=== PATIENT | female | born 2000 ===

== ENCOUNTER 2021-06-18 06:18 | Inpatient (IN) | payer OTHER ==
[~2021-06-18] VITALS: Ht 170.2 cm; Wt 81.5 kg
[2021-06-18] MEDS ORDERED: PENICILLIN G POTASSIUM IV 5 MU in D5W MINI-BAG PLUS 100 ML IV STA (07:14)
[2021-06-18] MEDS ORDERED: OXYTOCIN DRIP 30 UNITS in IV 1 EA IV PRN (07:15)
[2021-06-18] MEDS ORDERED: LIDOCAINE 1% MDV 20ML VIAL INFIL PRN (07:15)
[2021-06-18] MEDS ORDERED: OXYTOCIN 30 UNITS IN 0.9% NaCl 500ML IV BAG (J2590) As Ordered ONE (07:20)
--- NOTE | 2021-06-18 08:07 | HPEPDOC ---
Obstetrical History & Physical General Date of Admission Jun 18, 2021 at 07:06 History of Present Illness Ms. Sosa is a 20yo at 38+6 who presented in active labor. She denied Vb , LOf, decreased fm. 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 Past Medical History Medical History history of TB in 2016 anemia elevated 1h GTT, no 3h GTT or finger sticks GBS positive Initial blood Ab test positive, repeat testing negative inconsistent information on dating Surgical History: Denies/None Family History Significant Family History: No pertinent family hx Social History Psychosocial History: No pertinent psych hx * Smoker: non-smoker Alcohol: Denies Drugs: denies Imunizations Tdap status: current Allergies Coded Allergies: honey (Verified Allergy, Mild, HIVES NUMBNESS, 06/18/21) Physical Examination Physical Examination GENERAL: Alert and oriented times three. BREAST: . ABDOMEN: Gravid and non-tender to touch. FETUS: Is vertex (VTX) by sterile vaginal examination (SVE), fetus is vertex (VTX) by US HEART RATE: Regular rate and rhythm. LUNGS: Clear to auscultation (CTA). EXTREMITIES: No edema. No clonus. Laboratory Data 24H LABS Laboratory Tests 2 06/18/21 07:46: CBC/BMP Pertinent Laboratoy Data Blood Type: O+ RBC Antibody Screen: Negative HIV: Negative Hepatitis B: Negative Rapid Plasma Reagin: Nonreactive Rubella: Immune Varicella: Unknown Chlamydia/Gonorrhea: Negative Group B Streptococcus: Positive Quad Screen Test: Unknown Cystic Fibrosis: Unknown Glucose Tolerance Test: 169 Anatomy Ultrasound Placenta Location: Posterior Normal Anatomy: Yes Vaginal Examination Dilation: 9 cm Effacement: 90% Station: 0 Cervical Consistency: Soft Cervical Position: Anterior Presentation: Cephalic presentation (by US) Assessment Variability: Moderate Accelerations: Positive Decelerations: None Tocometer Contractions: Yes Frequency: regular Multi-drug resistant Organism: No history of MDRO Assessment/Plan Assessment Ms. Sosa is a 20yo at 38+6 who presented in active labor. CAT I NST reactive. VS normal. SVE 9cm. APC history of TB in 2016 anemia elevated 1h GTT, no 3h GTT or finger sticks GBS positive Initial blood Ab test positive, repeat testing negative inconsistent information on dating Rh pos, GBS POS, ceph by US, placenta posterior Plan Admit and orient. Cooperative Education Coordinator and consent. Diet: clears Group B Streptococcus (GBS) [negative]. Labs and intravenous (IV) per unit protocol. Counseled on Pitocin and induction of labor (IOL). Lactated Ringers (LR): Bolus PRN Anticipate [normal spontaneous delivery ()]. C-S as appropriate. SERENITY CALDERA DO Jun 18, 2021 08:07
[2021-06-18] MEDS ORDERED: PROMETHAZINE INJ 25 MG/ML VIAL (J2550) IV ONE (08:10)
[2021-06-18] MEDS ORDERED: BUTORPHANOL 2 MG/ML INJ (J0595) IV ONE (08:10)
[2021-06-18 08:13] LABS: HEMATOCRIT 35.8 % (36.0-47.0); HEMOGLOBIN 12.5 g/dl (12.0-15.5); MEAN CORPUSCULAR HEMOGLOBIN 31.7 pg (27.0-33.0); MEAN CORPUSCULAR HGB CONC 34.9 g/dl (32.0-36.5); MEAN CORPUSCULAR VOLUME 90.9 fl (80.0-96.0); PLATELET COUNT, AUTOMATED 268 10^3/uL (150-450); RED BLOOD COUNT 3.94 10^6/uL (4.00-5.40); WHITE BLOOD COUNT 19.2 10^3/uL (4.0-10.0)
[2021-06-18] MEDS ORDERED: VITA250T4 PO (08:20)
[2021-06-18] MEDS ORDERED: MULTTAB20 PO (08:20)
[2021-06-18] MEDS ORDERED: IRON27TA2 PO (08:20)
[2021-06-18] MEDS ORDERED: HOME MED LIST COMPLETE! XX SCH (08:20)
[2021-06-18] MEDS ORDERED: LIDOCAINE 1% MDV 20ML VIAL INFIL ONE (08:30)
[2021-06-18] MEDS ORDERED: ACETAMINOPHEN TAB 650MG DOSE (2X325MG) PO PRN (08:30)
[2021-06-18] MEDS ORDERED: PROMETHAZINE 25 MG TAB PO PRN (08:30)
[2021-06-18] MEDS ORDERED: METHYLERGONOVINE MALEATE 0.2 MG TAB PO PRN (08:30)
[2021-06-18] MEDS ORDERED: IBUPROFEN 600MG TAB PO PRN (08:30)
[2021-06-18] MEDS ORDERED: MEASLES,MUMPS,RUBELLA VACCINE INJ (MMR-II) (90707) SC SCH (08:30)
[2021-06-18] MEDS ORDERED: RHOGAM 300 MCG (1500 IU) INJ (J2790) IM SCH (08:30)
[2021-06-18] MEDS ORDERED: ACETAMINOPHEN 500 MG TAB PO PRN (08:30)
[2021-06-18] MEDS ORDERED: ANUSOL HC CREAM 30GM TOP PRN (08:30)
[2021-06-18] MEDS ORDERED: DIBUCAINE 1% OINTMENT 30GM TOP PRN (09:00)
[2021-06-18] MEDS: DOCUSATE SODIUM 100MG CAPSULE PO SCH ×2 (09:00→21:00)
[2021-06-18] MEDS: PRENATAL VITAMINS CHEWABLE TABLET PO SCH (09:00)
[2021-06-18 10:38] VITALS: BP 109/61
[2021-06-18] MEDS: IBUPROFEN 800 MG TAB PO PRN (10:54)
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
[2021-06-18] MEDS ORDERED: PENICILLIN G POTASSIUM IV 2.5 MU in IV 1 EA IV SCH (11:30)
[2021-06-18 18:00] VITALS: BP 123/57
[2021-06-19 06:43] VITALS: BP 110/55
--- NOTE | 2021-06-19 07:39 | IPNPDOC ---
Progress Note Date of Service: Jun 19, 2021 Day#: 1 Progress Note SUBJECT: Barbara is a 21-year-old 1 now Para 1001 status post uncomplicated spontaneous vaginal delivery at 38 6/7 weeks' on 06/18/21 of a Live female weighing 7 lb 10 oz, 3448 grams with Apgars of 8 and 8 at 1 and 5 minutes respectively., doing well day # 1. She has been ambulating, voiding spontaneously without issue and tolerating regular diet. 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 She is latching and is able to breast feed in small amounts. Reports lochia is moderate and decreasing. OBJECTIVE: VITAL SIGNS: Within normal limits, afebrile. Alert and oriented times three. normal work of breathing Heart rate: Regular rate Abdomen: Fundus firm at U-2. Soft, NTTP. ASSESSMENT:Barbara is a 21-year-old 1 now Para 1001 status post uncomplicated spontaneous vaginal delivery at 38 6/7 weeks' on 06/18/21 of a Live female infant weighing 7 lb 10 oz, 3448 grams with Apgars of 8 and 8 at 1 and 5 minutes respectively, doing well day # 1. Vitals within normal limits, afebrile, hemodynamically stable with no evidence of infection. Baby is in NNICU with diagnosis of Iker Eddi syndrome. Per patient, there are no plans to transfer baby at this time and she is overall doing well. PLAN: 1. Discharge to home tomorrow 2. Tylenol and Motrin for pain. 3. Encourage breast feeding and ambulation. 4. Plans to discuss contraception at visit 5. Routine PP visit in 6 weeks in clinic. 6. Discussed return precautions at length. VS, I&O, 24H, Fishbone Vital Signs/I&O Vital Signs Date Time Temp Pulse Resp B/P (MAP) Pulse Ox O2 Delivery O2 Flow Rate FiO2 06/19/21 06:43 98.3 87 18 110/55 (73) Room Air 06/18/21 18:00 97 I&O- Last 24 Hours up to 6 AM 06/19/21 05:59 Intake Total 400 ml Output Total 200 ml Balance 200 ml Laboratory Data 24H LABS Laboratory Tests 2 06/18/21 07:46: Nucleated Red Blood Cells % (auto) 0.0, Syphilis Serology NONREACTIVE CBC/BMP Laboratory Tests 06/18/21 07:46 DONTE MANDEL M.D. Jun 19, 2021 07:39
[2021-06-19 08:09] LABS: HEMATOCRIT 32.5 % (36.0-47.0); HEMOGLOBIN 11.1 g/dl (12.0-15.5); MEAN CORPUSCULAR HEMOGLOBIN 31.9 pg (27.0-33.0); MEAN CORPUSCULAR HGB CONC 34.2 g/dl (32.0-36.5); MEAN CORPUSCULAR VOLUME 93.4 fl (80.0-96.0); PLATELET COUNT, AUTOMATED 243 10^3/uL (150-450); RED BLOOD COUNT 3.48 10^6/uL (4.00-5.40); WHITE BLOOD COUNT 15.4 10^3/uL (4.0-10.0)
[2021-06-19] MEDS: DOCUSATE SODIUM 100MG CAPSULE PO SCH ×2 (08:44→19:42)
[2021-06-19] MEDS: PRENATAL VITAMINS CHEWABLE TABLET PO SCH (08:44)
[2021-06-19] MEDS: IBUPROFEN 800 MG TAB PO PRN (08:44)
[2021-06-19 17:55] VITALS: BP 112/71
[2021-06-20 05:40] VITALS: BP 120/68
[2021-06-20] MEDS ORDERED: DIBU28OI2 TOP (08:55)
[2021-06-20] MEDS ORDERED: IBUP80TA PO (08:55)
[2021-06-20] MEDS ORDERED: ACET1TAB55 PO (08:55)
--- NOTE | 2021-06-20 09:38 | DS.PDOC ---
Discharge Summary General Date of Admission Jun 18, 2021 at 07:06 Date of Discharge Jun 20, 2021 Discharge Summary HOSPITAL COURSE: Ms. Sosa is a 21 yo G1 now P1 who underwent an uncomplicated on 18Jun2021 after being admitted for active labor. Her course was unremarkable. On her day of discharge she met all appropriate discharge criteria. She was ambulating, voiding, tolerating a regular diet, and had minimal lochia. Baby spent time in the NICU due to Iker Eddi Syndrome. DISCHARGE MEDICATIONS: Please see below. ALLERGIES: Please see below. PHYSICAL EXAMINATION ON DISCHARGE: VITAL SIGNS: Please see below. GENERAL: AAOX3, NAD ABDOMINAL EXAMINATION: Fundus firm at U-2. No fundal tenderness EXTREMITIES: No edema PSYCHIATRIC EXAMINATION: Affect appropriate LABORATORY DATA: Please see below. ACTIVITY: Pelvic rest for 6 weeks DIET: Regular DISCHARGE PLAN: Discharge home or to boarder status DISPOSITION: Discharge home or to boarder status on 20Jun2021 DISCHARGE INSTRUCTIONS: 1. Nothing in the vagina for 6 weeks ITEMS TO FOLLOWUP ON ON OUTPATIENT: 1. Call to schedule a visit for 6 weeks post delivery DISCHARGE CONDITION: Stable. TIME SPENT ON DISCHARGE: Greater than 20 minutes. Barbra Javier DO Vital Signs/I&Os Vital Signs Date Time Temp Pulse Resp B/P (MAP) Pulse Ox O2 Delivery O2 Flow Rate FiO2 06/20/21 05:40 98.9 91 16 120/68 (85) 06/19/21 17:55 98 Room Air Discharge Medications Scheduled No122/Iron/Folic Acid ( Multi Tablet) 1 Each Tablet, 1 TAB PO DAILY, (Reported) Scheduled PRN Acetaminophen (Acetaminophen) 325 Mg Tablet, 650 MG PO Q4HP PRN for PAIN LEVEL 1-5 Dibucaine (Dibucaine) 28 Gm Oint...g., 0 DOSE TOP Q4H PRN for PERINEUM PAIN Ibuprofen (Ibuprofen) 800 Mg Tablet, 800 MG PO Q8HP PRN for PAIN LEVEL 6-10 Allergies Coded Allergies: honey (Verified Allergy, Mild, HIVES NUMBNESS, 06/18/21) BARBRA JAVIER DO Jun 20, 2021 09:38
[2021-06-20] MEDS: PRENATAL VITAMINS CHEWABLE TABLET PO SCH (10:53)
[2021-06-20] MEDS: DOCUSATE SODIUM 100MG CAPSULE PO SCH (10:53)
== END 2021-06-20 11:45 | disposition home or self-care (01) | DRG 807 ==
LOC: M LDO 06:18 → M LDI 07:06 → M OBS 09:46
PROVIDERS: ADMIT Obstetrics & Gynecology; ATTEND Registered Nurse Maternal Newborn
PROC: 10E0XZZ Delivery of Products of Conception, External Approach (ICD-10-PCS; principal; 2021-06-18)
PROC: 0UQMXZZ Repair Vulva, External Approach (ICD-10-PCS; 2021-06-18)
DX: O99.02 Anemia complicating childbirth (principal); Z37.0 Single live birth; O99.824 Streptococcus B carrier state complicating childbirth; Z3A.38 38 weeks gestation of pregnancy; O71.82 Other specified trauma to perineum and vulva; D64.9 Anemia, unspecified